=== PATIENT | male | born 1965 | race Caucasian/White ===

== ENCOUNTER 2021-11-01 10:14 | Emergency (ER) | payer OTHER, SELFPAY ==
[2021-11-01 10:32] VITALS: BP 135/91; PULSE 83; RESP 20; TEMP 37.1; O2SAT 97
--- NOTE | 2021-11-01 10:36 | ED.SKABFB ---
HPI - Skin/Abscess/Foreign Bdy General Chief complaint: Skin/Abscess/Foreign Body Stated complaint: Right Leg Pain Time Seen by Provider: 11/01/21 10:36 Source: patient Mode of arrival: ambulatory Limitations: no limitations History of Present Illness HPI narrative: 55-year-old male presented for complaint of right leg redness, warmth, and mild swelling, onset yesterday. Denies recent change to soap, detergent etc, no exposure to poison kaila, insect sting, or outdoor allergens. He endorses a history of cellulitis and states this feels in appears similar. Denies significant itching, pain, or any drainage. Also, he has been taking Tylenol for headache, fevers and chills for the last 2 days. Endorses temperature up to 102. Denies associated nausea, vomiting, diarrhea, cough, shortness of breath or palpitations. He has not been boosted for COVID or vaccinated for flu. Denies sick contacts. MD complaint: rash Related Data Home Medications Medication Instructions Recorded Confirmed allopurinol 100 mg tablet 1 tablet PO DAILY 11/01/21 11/01/21 amlodipine 5 mg tablet 1 tablet PO DAILY 11/01/21 11/01/21 levothyroxine 50 mcg tablet 1 tablet PO DAILY 11/01/21 11/01/21 nebivolol 10 mg tablet 1 tablet PO DIRECTED 11/01/21 11/01/21 phentermine 37.5 mg capsule 1 cap PO DAILY 11/01/21 11/01/21 Allergies Allergy/AdvReac Type Severity Reaction Status Date / Time No Known Allergies Allergy Verified 11/01/21 10:35 Review of Systems Review of Systems: CONSTITUTIONAL: Denies body aches EYES: Denies visual changes, redness, or discharge. ENT: Denies rhinorrhea, congestion, sore throat, or otalgia. CARDIOVASCULAR: Denies chest pain, palpitations RESPIRATORY: Denies cough or dyspnea. GASTROINTESTINAL: Denies abdominal pain, nausea, vomiting, or diarrhea. GENITOURINARY: Denies dysuria or hematuria. SKIN: rash right leg MUSCULOSKELETAL: Denies joint pain NEUROLOGIC: Denies numbness, tingling, or weakness. PMFSH Comments At time of signature, I have reviewed and agree with nursing past medical, surgical, social and family history unless otherwise noted. Please see nursing chart for further information. There is no relevant family history pertinent to the presenting complaint Exam Narrative: GENERAL: Well-appearing HEAD: Normocephalic EYES: conjunctivae clear, and EOMI. ENT: Mucous membranes moist. Oropharynx without edema, erythema or lesions. NECK: Supple. No lymphadenopathy CHEST: Clear to auscultation. No respiratory distress. HEART: Regular rate and rhythm. SKIN: Warm, dry. Right lower leg with scattered erythematous patches, not circumferential, no open areas or active drainage; mild swelling and warmth, c/w cellulitis vs urticaria MUSC: Bettina's neg no calf tenderness NEURO: Alert and oriented x3. PSYCH: Normal mood and affect Course Course Emergency Course: Patient is aware of diagnosis, understands and agrees to treatment plan. Anticipatory guidance given. Patient agrees to follow-up as directed and is aware of reasons to seek care at the emergency department. Portions of this record may have been created with voice recognition software Level of Care: Express Care Visit Vital Signs Vital signs: Vital Signs Temperature 98.8 F 11/01/21 10:32 Pulse Rate 83 11/01/21 10:32 Respiratory Rate 20 11/01/21 10:32 Blood Pressure 135/91 H 11/01/21 10:32 Pulse Oximetry 97 11/01/21 10:32 Oxygen Delivery Room Air 11/01/21 10:32 Temperature 98.8 F 11/01/21 10:32 Pulse Rate 83 11/01/21 10:32 Respiratory Rate 20 11/01/21 10:32 Blood Pressure 135/91 H 11/01/21 10:32 Pulse Oximetry 97 11/01/21 10:32 Oxygen Delivery Room Air 11/01/21 10:32 Reviewed MDM - Skin/Abscess/Foreign Bdy MDM Narrative Medical decision making narrative: covid and flu negative Right leg rash does not appear at this time to be erythema multiforme, bullous, SJS, TEN; Patient looks well, nontoxic, afebri
== END 2021-11-01 11:08 | disposition home or self-care (01) ==
PROVIDERS: Emergency Provider Nurse Practitioner Family
DX: L03.115 Cellulitis of right lower limb (principal); Z20.822 Contact with and (suspected) exposure to COVID-19; I10 Essential (primary) hypertension; M10.9 Gout, unspecified; E03.9 Hypothyroidism, unspecified
CPT/HCPCS: 87426; 87804; 99203; C9803; G0463

== ENCOUNTER 2023-12-03 12:54 | Emergency (ER) | payer OTHER, SELFPAY ==
--- NOTE | 2023-12-03 13:06 | ED.SKABFB ---
HPI - Skin/Abscess/Foreign Bdy General Chief complaint: Skin/Abscess/Foreign Body Stated complaint: rash on legs Time Seen by Provider: 12/03/23 13:06 Source: patient Mode of arrival: ambulatory Limitations: no limitations History of Present Illness HPI narrative: 57 yo M presents with c/o erythema to bilateral LEs for 4 to 5 days. Went to baseball game the other day and thought maybe got sun burned. Now has itching to both lower legs with redness and tiny bumps. Thinks he has cellulitis with allergic reaction to sunburn. hx of cellulitis. All systems reviewed and negative except as noted above. Related Data Home Medications Medication Instructions Recorded Confirmed allopurinol 100 mg tablet 1 tablet PO DAILY 11/01/21 12/03/23 amlodipine 5 mg tablet 1 tablet PO DAILY 11/01/21 12/03/23 levothyroxine 50 mcg tablet 1 tablet PO DAILY 11/01/21 12/03/23 nebivolol 10 mg tablet 1 tablet PO DIRECTED 11/01/21 12/03/23 phentermine 37.5 mg capsule 1 cap PO DAILY 11/01/21 12/03/23 Allergies Allergy/AdvReac Type Severity Reaction Status Date / Time No Known Allergies Allergy Verified 12/03/23 13:06 Review of Systems Review of Systems: CONSTITUTIONAL: Denies fever, chills, or sweats. EYES: Denies visual changes, redness, or discharge. ENT: Denies rhinorrhea, congestion, sore throat, or otalgia. CARDIOVASCULAR: Denies chest pain, palpitations, or edema. RESPIRATORY: Denies cough or dyspnea. GASTROINTESTINAL: Denies abdominal pain, nausea, vomiting, or diarrhea. GENITOURINARY: Denies dysuria or hematuria. SKIN: Denies rash or itching. MUSCULOSKELETAL: Denies back pain, joint pain, or myalgia. Reports redness, itching, rash to bilateral lower legs. NEUROLOGIC: Denies headache, numbness, or weakness. PSYCHIATRIC: Denies anxiety or depression. All other systems reviewed are negative, except as documented in HPI. PMFSH Comments At time of signature, agree with nursing past medical, surgical, social and family history. There is no relevant family history pertinent to the presenting complaint. Exam Narrative: GENERAL: This is a well-nourished, well-developed patient, in no apparent distress. HEAD: normocephalic, atraumatic. EYES: PERRL. Sclera clear/white. Vision is grossly intact. EARS: External ears normal NOSE: External nose normal NECK: Neck supple, non-tender without lymphadenopathy, masses or thyromegaly. CARDIOVASCULAR: Regular rate and rhythm without murmurs, gallops, or rubs. RESPIRATORY: Clear to auscultation. Breath sounds equal bilaterally. No wheezes, rales, or rhonchi. SKIN: warm, Dry, intact good texture and turgor. Erythema to bilateral lower extremities, sign papular rash. No warmth On palpation. Mild tenderness. cannot evaluate swelling due to body habitus. NEURO: awake, alert, and oriented to person, place and time. There were no obvious focal neurologic abnormalities. EXTREMITIES: No joint tenderness, effusion, or edema noted. Course Course Level of Care: Express Care Visit Vital Signs Vital signs: Reviewed MDM - Skin/Abscess/Foreign Bdy MDM Narrative Medical decision making narrative: Patient is aware of diagnosis, understands and agrees to treatment plan. Anticipatory guidance given. Patient agrees to follow-up as directed and is aware of reasons to seek care at the emergency department. Portions of this record may have been created with voice recognition software will prescribe patient antibiotics due to erythema to bilateral extremities, history of cellulitis. patient's symptoms cellulitis versus stasis dermatitis. Recommend follow-up with PCP. Discharge Plan Discharge Clinical Impression: Cellulitis of both lower extremities, Acute stasis dermatitis Patient Disposition: Home, Self-Care Condition: Stable Instructions: Antibiotic Form, Cellulitis (ED), Stasis Dermatitis (DC) Additional Instructions: Take antibiotic as prescribed until gone. Apply
[2023-12-03 13:12] VITALS: BP 136/91; PULSE 83; RESP 16; TEMP 37; O2SAT 95
== END 2023-12-03 13:21 | disposition home or self-care (01) ==
PROVIDERS: Emergency Provider Nurse Practitioner Family
DX: L03.116 Cellulitis of left lower limb (principal); L03.115 Cellulitis of right lower limb; I87.2 Venous insufficiency (chronic) (peripheral); I10 Essential (primary) hypertension; E03.9 Hypothyroidism, unspecified; M10.9 Gout, unspecified
CPT/HCPCS: 99213; G0463